=== PATIENT | female | born 1970 | race American Indian/Alaskan Native ===

== ENCOUNTER 2021-04-28 05:03 | Emergency (ER) | payer SELFPAY ==
[2021-04-28 06:51] LABS: Basophils % (Auto) 0.4 % (0.0-1.8); Eosinophils % (Auto) 0.2 % (0.0-4.3); Hematocrit 42.1 % (30.3-42.9); Hemoglobin 14.7 gm/dl (10.1-14.3); Lymphocytes # (Auto) 1.7 K/mm3 (1.2-5.4); Lymphocytes % (Auto) 19.4 % (13.4-35.0); Mean Corpuscular HGB Conc 35 % (30-34); Mean Corpuscular Volume 91 fl (79-97); Monocytes # (Auto) 0.3 K/mm3 (0.0-0.8); Monocytes % (Auto) 3.4 % (0.0-7.3); Platelet Count 417 K/mm3 (140-440); Red Blood Count 4.65 M/mm3 (3.65-5.03); Red Cell Distribution Width 15.2 % (13.2-15.2)
[2021-04-28 07:05] LABS: Alanine Aminotransferase 12 units/L (7-56); Albumin 4.8 g/dL (3.9-5); BUN/Creatinine Ratio 10; Blood Urea Nitrogen 6 mg/dL (7-17); Calcium 9.6 mg/dL (8.4-10.2); Hemolysis Index 0
--- NOTE | 2021-04-28 08:21 | Emergency Department Report ---
HPI - General Chief Complaint: Abdominal Pain Time Seen by Provider: 04/28/21 08:15 - HPI HPI: This is a 50-year-old -Citizen Of The [place] female who presents to the emergency department with a complaint of generalized abdominal pain, worst in the lower quadrants, as well as the inability to urinate over the past 24 hours. Patient denies any history of urinary retention. She says that she has a history of gallstones. She has not taken anything for symptoms prior to presentation. Currently her abdominal pain is 10 out of 10 in intensity. No known aggravating or alleviating factors. She denies any fever, nausea, vomiting, vaginal bleeding or discharge, constipation. The patient had told the triage nurse that she had had some chest discomfort and diarrhea x4 hours, but she currently denies the symptoms. No recent travel or sick contacts at home. ED Past Medical Hx - Past Medical History Previous Medical History?: No - Surgical History Past Surgical History?: No - Social History Smoking Status: Never Smoker Substance Use Type: None - Medications Home Medications: Home Medications Medication Instructions Recorded Confirmed Last Taken Type Ibuprofen [Motrin 800 MG tab] 800 mg PO Q8HR PRN #30 tablet 06/09/20 Unknown Rx Sulfamethoxazole/Trimethoprim 1 each PO BID #14 tablet 04/28/21 Unknown Rx [Bactrim DS TAB] ED Review of Systems ROS: Stated complaint: ABD PAIN,UNABLE TO VOID Other details as noted in HPI Comment: All other systems reviewed and negative Constitutional: denies: chills, fever Eyes: denies: eye pain, vision change ENT: denies: ear pain, throat pain Respiratory: denies: cough, shortness of breath Cardiovascular: denies: palpitations, edema Gastrointestinal: abdominal pain. denies: nausea, vomiting, constipation Genitourinary: denies: dysuria, discharge Musculoskeletal: denies: back pain, arthralgia Skin: denies: rash, lesions Neurological: denies: headache, weakness Physical Exam - Physical Exam Vital Signs: Vital Signs 04/28/21 05:42 Temperature 98.6 F Pulse Rate 88 Respiratory 18 Rate Blood Pressure 146/78 O2 Sat by Pulse 99 Oximetry Physical Exam: GENERAL: The patient is well-developed well-nourished, but appears uncomfortable. HENT: Normocephalic. Atraumatic. Patient has moist mucous membranes. EYES: Extraocular motions are intact. NECK: Supple. Trachea is midline. CHEST/LUNGS: Clear to auscultation. There is no respiratory distress noted. HEART/CARDIOVASCULAR: Regular. There is no tachycardia. There is no murmur. ABDOMEN: Abdomen is soft. Generalized abdominal tenderness to palpation but worse in the lower quadrants. No guarding. Patient has normal bowel sounds. There is no abdominal distention. SKIN: Skin is warm and dry. NEURO: The patient is awake, alert, and oriented. The patient is cooperative. The patient has no focal neurologic deficits. Normal speech. MUSCULOSKELETAL: There is no tenderness or deformity. There is no limitation range of motion. ED Course Vital Signs 04/28/21 05:42 Temperature 98.6 F Pulse Rate 88 Respiratory 18 Rate Blood Pressure 146/78 O2 Sat by Pulse 99 Oximetry - Reevaluation(s) Reevaluation #1: 04/28/21 08:43 A Lee catheter was placed by her nurse, Sanjuanita. So far the patient has put out close to 800 cc of urine. She had some slight improvement of her abdominal discomfort but still complains of moderate abdominal pain, mostly in the lower abdomen. An IV will be placed. The patient will be given a dose of IV analgesia and I have ordered a contrasted CT of the abdomen and pelvis. ED Medical Decision Making - Lab Data Result diagrams: 04/28/21 06:13 04/28/21 06:13 Lab Results 04/28/21 04/28/21 04/28/21 Range/Units 06:13 06:13 06:13 WBC 8.9 (4.5-11.0) K/mm3 RBC 4.65 (3.65-5.03) M/mm3 Hgb 14.7 H (10.1-14.3) gm/dl Hct 42.1 (30.3-42.9) % MCV 91 (79-97) fl MCH 32 (28-32) pg MCHC 35 H (30-34) % RDW 15.2 (13.2-15.2) % Plt Count 417 (140-440) K/mm3 Lymph % (Auto) 19.4 (13.4-35.0) % [place] % (Auto) 3.4 (0.0-7.3) % Eos % (Auto) 0.2 (0.0-4.3) % Baso % (Auto) 0.4 (0.0-1.8) % Lymph # (Auto) 1.7 (1.2-5.4) K/mm3 [place] # (Auto) 0.3 (0.0-0.8) K/mm3 Eos # (Auto) 0.0 (0.0-0.4) K/mm3 Baso # (Auto) 0.0 (0.0-0.1) K/mm3 Seg Neutrophils % 76.6 H (40.0-70.0) % Seg Neutrophils # 6.8 (1.8-7.7) K/mm3 Sodium 143 (137-145) mmol/L Potassium 3.4 L (3.6-5.0) mmol/L Chloride 100.8 (98-107) mmol/L Carbon Dioxide 24 (22-30) mmol/L Anion Gap 22 mmol/L BUN 6 L (7-17) mg/dL Creatinine 0.6 (0.6-1.2) mg/dL Estimated GFR > 60 ml/min BUN/Creatinine Ratio 10 % Glucose 148 H (65-100) mg/dL Calcium 9.6 (8.4-10.2) mg/dL Total Bilirubin 0.50 (0.1-1.2) mg/dL AST 18 (5-40) units/L ALT 12 (7-56) units/L Alkaline Phosphatase 125 (35-129) units/L Total Protein 8.4 H (6.3-8.2) g/dL Albumin 4.8 (3.9-5) g/dL Albumin/Globulin Ratio 1.3 % Lipase (13-60) units/L HCG, Qual Negative (Negative) Urine Color (Yellow) Urine Turbidity (Clear) Urine pH (5.0-7.0) Ur Specific [place] (1.003-1.030) Urine Protein (Negative) mg/dL Urine Glucose (UA) (Negative) mg/dL Urine Ketones (Negative) mg/dL Urine Blood (Negative) Urine Nitrite (Negative) Urine Bilirubin (Negative) Urine Urobilinogen (<2.0) mg/dL Ur Leukocyte Esterase (Negative) Urine WBC (Auto) (0.0-6.0) /HPF Urine RBC (Auto) (0.0-6.0) /HPF Urine Bacteria (Auto) (Negative) /HPF 04/28/21 04/28/21 Range/Units 06:13 08:56 WBC (4.5-11.0) K/mm3 RBC (3.65-5.03) M/mm3 Hgb (10.1-14.3) gm/dl Hct (30.3-42.9) % MCV (79-97) fl MCH (28-32) pg MCHC (30-34) % RDW (13.2-15.2) % Plt Count (140-440) K/mm3 Lymph % (Auto) (13.4-35.0) % [place] % (Auto) (0.0-7.3) % Eos % (Auto) (0.0-4.3) % Baso % (Auto) (0.0-1.8) % Lymph # (Auto) (1.2-5.4) K/mm3 [place] # (Auto) (0.0-0.8) K/mm3 Eos # (Auto) (0.0-0.4) K/mm3 Baso # (Auto) (0.0-0.1) K/mm3 Seg Neutrophils % (40.0-70.0) % Seg Neutrophils # (1.8-7.7) K/mm3 Sodium (137-145) mmol/L Potassium (3.6-5.0) mmol/L Chloride (98-107) mmol/L Carbon Dioxide (22-30) mmol/L Anion Gap mmol/L BUN (7-17) mg/dL Creatinine (0.6-1.2) mg/dL Estimated GFR ml/min BUN/Creatinine Ratio % Glucose (65-100) mg/dL Calcium (8.4-10.2) mg/dL Total Bilirubin (0.1-1.2) mg/dL AST (5-40) units/L ALT (7-56) units/L Alkaline Phosphatase (35-129) units/L Total Protein (6.3-8.2) g/dL Albumin (3.9-5) g/dL Albumin/Globulin Ratio % Lipase 19 (13-60) units/L HCG, Qual (Negative) Urine Color Straw (Yellow) Urine Turbidity Clear (Clear) Urine pH 9.0 H (5.0-7.0) Ur Specific [place] 1.005 (1.003-1.030) Urine Protein <15 mg/dl (Negative) mg/dL Urine Glucose (UA) Neg (Negative) mg/dL Urine Ketones Tr (Negative) mg/dL Urine Blood Sm (Negative) Urine Nitrite Neg (Negative) Urine Bilirubin Neg (Negative) Urine Urobilinogen < 2.0 (<2.0) mg/dL Ur Leukocyte Esterase Neg (Negative) Urine WBC (Auto) < 1.0 (0.0-6.0) /HPF Urine RBC (Auto) 5.0 (0.0-6.0) /HPF Urine Bacteria (Auto) 1+ (Negative) /HPF - Radiology Data Radiology results: report reviewed CT ABDOMEN AND PELVIS WITH CONTRAST INDICATION / CLINICAL INFORMATION: Lower abd pain, urinary retention, hx of gallstone O,NIPAQUE 300 100ML. TECHNIQUE: Axial CT images were obtained through the abdomen and pelvis after 100 cc Omnipaque [address] scans at this location are performed using CT dose reduction for ALARA by means of automated exposure control. COMPARISON: None available. FINDINGS: LOWER CHEST: No significant abnormality. HEPATOBILIARY: Peripherally calcified gallstones measuring on the order of 2-3 cm fill the gallbladder. No significant gallbladder wall thickening or pericholecystic fluid/inflammatory change. No significant biliary ductal dilatation. PANCREAS/SPLEEN/ADRENALS: No significant abnormality. GENITOURINARY: The bladder is decompressed around a Lee catheter. No obstructive uropathy. There is moderate right and mild left periureteral fat stranding. No nephrolithiasis. Small amount of perinephric fluid is visualized at the inferior aspect of both kidneys. No solid renal mass or abnormal parenchymal enhancement. GASTROINTESTINAL/MESENTERY: No significant abnormality. RETROPERITONEUM: No significant adenopathy. REPRODUCTIVE ORGANS: No significant abnormality. VASCULAR: No significant abnormality. BODY WALL: No significant abnormality. SKELETAL SYSTEM: Healing left inferior pubic ramus fracture deformity is age indeterminate and may be subacute or chronic. No significant displacement. IMPRESSION: 1. Moderate right and mild left periureteral fat stranding could represent a inflammatory or infectious etiology. No obstructive uropathy. Mild perinephric fluid without abnormal parenchymal e nhancement. 2. Healing left inferior pubic ramus fracture without significant displacement. Exact age is indeterminate, however this may be subacute or chronic. Recommend clinical correlation. 3. Cholelithiasis without evidence of acute cholecystitis. 4. Addit ional findings as above. - Medical Decision Making This patient presents to the emergency department with a complaint of acute urinary retention and abdominal pain. On examination there is reproducible tenderness to palpation of the abdomen. As the patient says that she has not urinated in the past 24 hours, a Lee catheter was placed. During her ED cour se the patient put out close to 2 L of urine. Even after the patient voided about 1 L, she still complained of abdominal pain. For this reason the patient had a CT scan of the abdomen and pelvis with IV contrast that shows some mild fluid and inflammatory changes around the ureters and kidneys without any signs of abscess, mass, or significant anatomic abnormalities. Patient's labs have been mostly unremarkable including CBC, CMP, lipase, urinalysis, and the patient is not . Vital signs have been reassuring throughout her ED course including being afebrile. Patient was treated with some IV analgesia and a dose of antiemetic. Upon reevaluation she is feeling improved. She appears safe for discharge home at this time. The Lee catheter has been switched to a leg bag. She will be placed on antibiotics secondary to the inflammatory changes seen on CT, as well as the indwelling Lee catheter. She has been given outpatient referral for both primary care and urology. She has also been given a referral for outpatient general surgery to follow-up and/or establish care for her cholelithiasis without cholecystitis. She will return to the emergency department with any worsening of her symptoms or with any acute distress. Critical Care Time: No Critical care attestation.: If time is entered above; I have spent that time in minutes in the direct care of this critically ill patient, excluding procedure time. ED Disposition Clinical Impression: Urinary retention Abdominal pain Qualifiers: Abdominal location: unspecified location Qualified Code(s): R10.9 - Unspecified abdominal pain Cholelithiasis Qualifiers: Cholelithiasis location: gallbladder Cholecystitis presence: without cholecystitis Biliary obstruction: without biliary obstruction Qualified Code(s): K80.20 - Calculus of gallbladder without cholecystitis without obstruction Disposition: TO HOME OR SELFCARE Is pt being admited?: No Condition: Stable Instructions: Cholelithiasis, Abdominal Pain, Adult, Acute Urinary Retention, Female, Indwelling Urinary Catheter Insertion, Care After, Abdominal Pain (ED) Additional Instructions: Please follow-up with a primary care physician. Due to your urinary retention and the Lee catheter placement, please follow-up with a urologist in the next few days. I have given you a referral for a local urologist, Dr. Cuevas. I have given you a referral for a local general surgeon, Dr. Wilkerson, to follow- up regarding your history of gallstones. Return to the emergency department with any worsening of your symptoms, new or concerning symptoms not addressed during this current emergency department visit, or with any acute distress. Prescriptions: Sulfamethoxazole/Trimethoprim [Bactrim DS TAB] 1 each PO BID #14 tablet Referrals: GRACIELA WILKERSON MD [Staff Physician] - 3-5 Days RENUKA CUEVAS MD [Staff Physician] - 2-3 Days PRIMARY CAREMD [Primary Care Provider] - 2-3 Days Time of Disposition: 10:50
[2021-04-28] MEDS ORDERED: MORPHINE 4 MG/1 ML INJ IV ONE (08:43)
[2021-04-28] MEDS ORDERED: ONDANSETRON 4 MG/2 ML INJ IV ONE (08:43)
[2021-04-28 09:38] LABS: Bacteria,Urine 1+ /HPF (Negative); Bilirubin,Urine NEG (Negative); Blood,Urine SM (Negative); Color,Urine Straw (Yellow); Protein,Urine <15 mg/dL mg/dL (Negative); Urobilinogen,Urine < 2.0 mg/dL (<2.0); WBC,Urine < 1.0 /HPF (0.0-6.0)
--- NOTE | 2021-04-28 10:26 | Cat Scan Report ---
CT ABDOMEN AND PELVIS WITH CONTRAST INDICATION / CLINICAL INFORMATION: Lower abd pain, urinary retention, hx of gallstone O,NIPAQUE 300 100ML. TECHNIQUE: Axial CT images were obtained through the abdomen and pelvis after 100 cc Omnipaque [address] scans at this location are performed using CT dose reduction for ALARA by means of automated exposure control. COMPARISON: None available. FINDINGS: LOWER CHEST: No significant abnormality. HEPATOBILIARY: Peripherally calcified gallstones measuring on the order of 2-3 cm fill the gallbladde r. No significant gallbladder wall thickening or pericholecystic fluid/inflammatory change. No signif icant biliary ductal dilatation. PANCREAS/SPLEEN/ADRENALS: No significant abnormality. GENITOURINARY: The bladder is decompressed around a Lee catheter. No obstructive uropathy. There is moderate right and mild left periureteral fat stranding. No nephrolithiasis. Small amount of perinep hric fluid is visualized at the inferior aspect of both kidneys. No solid renal mass or abnormal pare nchymal enhancement. GASTROINTESTINAL/MESENTERY: No significant abnormality. RETROPERITONEUM: No significant adenopathy. REPRODUCTIVE ORGANS: No significant abnormality. VASCULAR: No significant abnormality. BODY WALL: No significant abnormality. SKELETAL SYSTEM: Healing left inferior pubic ramus fracture deformity is age indeterminate and may be subacute or chronic. No significant displacement. IMPRESSION: 1. Moderate right and mild left periureteral fat stranding could represent a inflammatory or infectio us etiology. No obstructive uropathy. Mild perinephric fluid without abnormal parenchymal enhancement . 2. Healing left inferior pubic ramus fracture without significant displacement. Exact age is indeterm inate, however this may be subacute or chronic. Recommend clinical correlation. 3. Cholelithiasis without evidence of acute cholecystitis. 4. Additional findings as above. Signer Name: Joseph Das MD Signed: 04/28/2021 10:22 AM Workstation Name: [id number]
[2021-04-28 12:10] VITALS: BP 180/88
--- NOTE | 2021-05-02 12:58 | Electrocardiograph Report ---
[facility] Test Date: 2021-04-28 Test Time: 05:44:14 Pat Name: IBRAHIMA DOUGLAS Department: Room: Gender: F [employer] Supervisor: PRESLEY : 1970 Requested By: MARY GUERRERO Order Number: [id number] Reading MD: Chetan Valdez Measurements Intervals [place] Rate: 85 P: -3 CT: 142 QRS: 47 QRSD: 86 T: 72 QT: 420 QTc: 501 Interpretive Statements Sinus rhythm No previous ECG available for comparison Electronically Signed On 05-02-2021 12:57:35 EDT by Chetan Valdez
== END 2021-04-28 12:15 | disposition home or self-care (01) ==
LOC: ED 05:03
DX: R33.9 Retention of urine, unspecified (principal); R10.84 Generalized abdominal pain; Z79.899 Other long term (current) drug therapy
CPT/HCPCS: 36415; 51702; 74177; 80053; 81001; 83690; 84703; 85025; 93005; 96374; 96375; 99284; J2270; J2405; Q9967